=== PATIENT | female | born 1960 ===

== ENCOUNTER 2017-12-21 10:10 | Emergency (ER) | payer OTHER ==
[2017-12-21 10:31] VITALS: RESP 16
--- NOTE | 2017-12-21 12:06 | ED PDOC ---
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 Patient reports it resolved on its own and had a similar episode a month ago which also resolved on its own. Denies fever, cough , and chills. No history of cardiac or pulmonary disease, no family history of cardiac disease. no recent immobility/history of blood clots. pt feels fine now. PCP: none provided Past Medical History Reviewed: Historical Data, Nursing Documentation, Vital Signs Vital Signs: Last Vital Signs Temp 98.1 F 12/21/17 14:13 Pulse 68 12/23/17 11:21 Resp 16 12/21/17 14:13 BP 141/77 12/21/17 14:13 Pulse Ox 97 12/23/17 11:21 - Medical History PMH: No Chronic Diseases - Surgical History Surgical History: No Surg Hx - Family History Family History: States: Unknown Family Hx - Social History Current smoker - smoking cessation education provided: No Alcohol: None Drugs: Denies - Allergies Allergies/Adverse Reactions: Allergies Allergy/AdvReac Type Severity Reaction Status Date / Time No Known Allergies Allergy Verified 12/21/17 10:35 Curb-65 Severity Score - CURB-65 Severity Score Confusion: No Bun >19mg/dl (>7mmol/L): No Respiratory Rate greater than/equal to 30: No Systolic BP <90 or Diastolic BP less than/equal 60mmHg: No Age >64: No Curb-65 Score: 0 Percentage 30-day mortality: 0.6% Wells Criteria for PE - Wells Criteria for Pulmonary Embolism Clinical Signs and Symptoms of DVT: No P.E is #1 Diagnosis, or Equally Likely: No Heart Rate >100: No Immobilization at least 3 days;Surgery previous 4 weeks: No Previous, objectively diagnosed PE or DVT: No Hemoptysis: No Malignancy w/treatment within 6 months, or palliative: No Total Score: 0 Review of Systems ROS Statement: Except As Marked, All Systems Reviewed And Found Negative Constitutional: Negative for: Fever, Chills Respiratory: Positive for: Shortness of Breath (resolved). Negative for: Cough Physical Exam - Reviewed Nursing Documentation Reviewed: Yes Vital Signs Reviewed: Yes - Physical Exam Appears: Positive for: Non-toxic, No Acute Distress (in no respiratory distress. ambulating around ED. alert and awake. airway intact.) Head Exam: Positive for: ATRAUMATIC, NORMAL INSPECTION, NORMOCEPHALIC Skin: Positive for: Normal Color, Warm, Dry Eye Exam: Positive for: Normal appearance ENT: Positive for: Normal ENT Inspection Neck: Positive for: Normal, Painless ROM Cardiovascular/Chest: Positive for: Regular Rate, Rhythm. Negative for: Murmur Respiratory: Positive for: Normal Breath Sounds. Negative for: Wheezing, Respiratory Distress Gastrointestinal/Abdominal: Positive for: Normal Exam, Soft. Negative for: Tenderness Back: Positive for: Normal Inspection. Negative for: L CVA Tenderness, R CVA Tenderness Extremity: Positive for: Normal ROM, Other (neg glenn sign. no leg swelling) Neurologic/Psych: Positive for: Alert, Oriented. Negative for: Motor/Sensory Deficits - Laboratory Results Result Diagrams: 12/21/17 11:55 12/21/17 11:55 - ECG ECG Rhythm: Positive for: Sinus Rhythm (normal, 78), Right Bundle Branch Block ( incomplete), Nonspecific Changes (no ST elev.) Rate: 68 O2 Sat by Pulse Oximetry: 97 (RA) Pulse Ox Interpretation: Normal Medical Decision Making Medical Decision Making: Initial Impression: Shortness of breath rule out cardiac versus pulmonary etiology. suych as pneumonia. abnormal ekg or troponin. Initial Plan: ECG CMP Troponin CBC Chest X-ray 12:13 Chest X-ray FINDINGS: LINES AND TUBES: None. LUNG AND PLEURA: The lungs are well inflated and clear. No pleural effusion or pneumothorax. HEART AND MEDIASTINUM: The heart is not enlarged. The hilar and mediastinal contours are within normal limits. SKELETAL STRUCTURES: The bony structures are within normal limits for the patient's age. VISUALIZED UPPER ABDOMEN: Normal. OTHER FINDINGS: None. IMPRESSION: No active pulmonary disease. 14:00 Labs reviewed and are normal. and patient is feeling better. EKG is normal sinus. No risk factors or sympotms of PE, cardiac or pulm. disease. pts vitals normal. Patient is stable for discharge and is advised to follow up with the clinic this week. explained all to family at bedside. Scribe Attestation: Documented by Shahram Hatfield acting as a scribe for Nicole Danielson MD. Provider Scribe Attestation: All medical record entries made by the Scribe were at my direction and personally dictated by me. I have reviewed the chart and agree that the record accurately reflects my personal performance of the history, physical exam, medical decision making, and the department course for this patient. I have also personally directed, reviewed, and agree with the discharge instructions and disposition. Disposition - Clinical Impression Clinical Impression: Shortness of breath - Patient ED Disposition Is Patient to be Admitted: No Counseled Patient/Family Regarding: Studies Performed, Diagnosis, Need For Followup - Disposition Referrals: [facility] [Outside] Former[facility] [Outside] Disposition: Routine/Home Disposition Time: 13:00 Condition: IMPROVED Additional Instructions: follow up in clinic in 1-2 days return to the ED with any worsening or concerning symptoms Instructions: Shortness of Breath (Dyspnea) (DC) Forms: [employer] (Albanian), Social[employer] (Welsh) Print Language: VIETNAMESE
[2017-12-21 12:17] LABS: BASO % 0.7 % (0.0-2.0); EOS # 0.1 K/uL (0.0-0.7); EOS % 2.4 % (0.0-4.0); HEMOGLOBIN 13.7 g/dL (12.0-16.0); LYMPH # 1.3 K/uL (1.0-4.3); MEAN CELL VOLUME 90.9 fl (81.0-99.0); MEAN CORPUSCULAR HGB CONC 34.1 g/dL (33.0-37.0); MEAN PLATELET VOLUME 8.7 fl (7.2-11.7); MONO # 0.3 K/uL (0.0-0.8); MONO % 7.1 % (0.0-10.0); NEUT # 2.7 K/uL (1.8-7.0); NEUT % 59.8 % (50.0-75.0); NRBC % 0.1 % (0.0-0.0); RBC 4.42 Mil/uL (3.80-5.20); RED CELL DISTRIBUTION WIDTH 13.7 % (11.5-14.5); WHITE BLOOD COUNT 4.5 K/uL (4.8-10.8)
[2017-12-21 12:26] LABS: ALB/GLOB RATIO 1.2 (1.0-2.1); ALBUMIN 4.2 g/dL (3.5-5.0); ALT/SGPT 66 U/L (9-52); AST/SGOT 42 U/L (14-36); BLOOD UREA NITROGEN 12 mg/dl (7-17); CALCIUM 9.3 mg/dL (8.4-10.2); GFR AFRICAN-AMERICAN > 60; GFR NON-AFRICAN AMERICAN > 60
[2017-12-21 14:16] VITALS: BP 141/77; TEMP 98.1
--- NOTE | 2017-12-22 17:27 | CARD ---
APPROVED REPORT EKG Measurement Heart [id number] <Conclusion> Normal sinus rhythm Incomplete right bundle branch block Borderline ECG
[2017-12-23 11:20] VITALS: PULSE 68; O2SAT 97
== END 2017-12-21 14:16 | disposition home or self-care (01) ==
LOC: H.ER 10:10
DX: R06.02 Shortness of breath (principal); J44.0 Chronic obstructive pulmonary disease with (acute) lower respiratory infection

== ENCOUNTER 2018-12-20 10:53 | Emergency (ER) | payer SELFPAY ==
[2018-12-20 11:02] VITALS: BMI 28.3
[2018-12-20 11:04] VITALS: RESP 16
--- NOTE | 2018-12-20 14:57 | CT ---
Date of service: 12/20/2018 PROCEDURE: CT OF THE TEMPORAL BONES WITHOUT CONTRAST HISTORY: left ear pain, dizziness COMPARISON: None available. TECHNIQUE: High resolution axial images of the temporal bones were obtained. Coronal and sagittal reformats were generated. Radiation dose: Total exam DLP = 539.39 mGy-cm. This CT exam was performed using one or more of the following dose reduction techniques: Automated exposure control, adjustment of the mA and/or kV according to patient size, and/or use of iterative reconstruction technique. FINDINGS: RIGHT TEMPORAL BONE: RIGHT MIDDLE EAR: Normal. RIGHT INNER EAR: Cochlea: Normal. Semicircular canals: Normal. RIGHT MASTOID AIR CELLS: Normal. RIGHT INTERNAL AUDITORY CANAL: Normal. RIGHT EXTERNAL AUDITORY CANAL: Normal. RIGHT VESTIBULAR AND COCHLEAR AQUEDUCT: Normal. OTHER FINDINGS: None. LEFT TEMPORAL BONE: LEFT MIDDLE EAR: Normal. LEFT INNER EAR: Cochlea: Normal. Semicircular canals: Normal. LEFT MASTOID AIR CELLS: Normal. LEFT INTERNAL AUDITORY CANAL: Normal. LEFT EXTERNAL AUDITORY CANAL: Normal. LEFT VESTIBULAR AND COCHLEAR AQUEDUCTS: Normal. OTHER FINDINGS: There is mild scattered mucosal thickening in the right ethmoid air cells and a retention cyst/polyp in the right mid ethmoid air cell. The remaining paranasal sinuses are clear. IMPRESSION: No CT evidence for acute mastoiditis or otitis media. Mild chronic right ethmoid sinusitis and a retention cyst/polyp in the right mid ethmoid air cell.
--- NOTE | 2018-12-20 15:10 | ED PDOC ---
HPI: CCC, URI, Sore Throat Time Seen by Provider: 12/20/18 12:29 Chief Complaint (Nursing): ENT Problem Chief Complaint (Provider): ENT Problem History Per: Patient History/Exam Limitations: no limitations Onset/Duration Of Symptoms: Persistent (x3 weeks) Current Symptoms Are (Timing): Better Additional Complaint(s): 58 year old female presents to the emergency department with a complaint of left ear pain that started radiating to her right ear associated with intermittent dizziness and congestion for the past 3 weeks. She reports pain is worse in her left ear when she chews food or opens mouth. Patient took Advil with minimal alleviation but had not taken any today. At present, she reports "not feeling too bad". Otherwise, she denies any hearing loss, ear drainage, fever, chills, bodyaches, nausea, vomiting, cough, sore throat, headache, visual changes, facial swelling or pain. Past Medical History Reviewed: Historical Data, Nursing Documentation, Vital Signs Vital Signs: Last Vital Signs Temp 98.5 F 12/20/18 11:02 Pulse 73 12/20/18 11:02 Resp 16 12/20/18 11:02 BP 122/81 12/20/18 11:02 Pulse Ox 97 12/20/18 11:02 Primary Care Provider: FAMILY PROVIDER,NO - Medical History PMH: No Chronic Diseases - Family History Family History: States: Unknown Family Hx - Home Medications Home Medications: Ambulatory Orders Medication Instructions Recorded Ibuprofen [Motrin] 600 mg PO Q8H PRN #30 tab 12/20/18 - Allergies Allergies/Adverse Reactions: Allergies Allergy/AdvReac Type Severity Reaction Status Date / Time No Known Allergies Allergy Verified 12/20/18 12:59 Review of Systems ROS Statement: Except As Marked, All Systems Reviewed And Found Negative Constitutional: Negative for: Fever, Chills, Other (bodyaches) Eyes: Negative for: Vision Change ENT: Positive for: Ear Pain (left > right), Nose Congestion. Negative for: Ear Discharge, Nose Discharge, Throat Pain, Other (hearing loss or facial swelling/pain) Respiratory: Negative for: Cough Gastrointestinal: Negative for: Nausea, Vomiting Neurological: Positive for: Dizziness. Negative for: Headache Physical Exam - Reviewed Nursing Documentation Reviewed: Yes Vital Signs Reviewed: Yes - Physical Exam Appears: Positive for: Non-toxic, No Acute Distress Head Exam: Positive for: ATRAUMATIC, NORMAL INSPECTION, NORMOCEPHALIC Skin: Positive for: Normal Color. Negative for: Rash Eye Exam: Positive for: Normal appearance, EOMI, PERRL. Negative for: Conjunctival injection ENT: Positive for: TM Is/Are (clear bilaterally with no signs of effusion, opacity, erythema, edema, or tragal tenderness), Nasal Congestion (mild), Other. Negative for: Sinus Pain/Drainage, Pharyngeal Erythema, Tonsillar Exudate, Tonsillar Swelling Neck: Positive for: Normal, Painless ROM, Supple Lymphatic: Negative for: Adenopathy Neurological/Psych: Positive for: Awake, Alert, Normal Tone, Oriented, pastry artist II- XII (grossly intact with symmetry). Negative for: Motor/Sensory Deficits, Other (trismus) - ECG O2 Sat by Pulse Oximetry: 97 (RA) Pulse Ox Interpretation: Normal Medical Decision Making Medical Decision Making: Time: 1329 Initial Plan: CT facial bone to rule out mastoiditis or sinusitis Time: 1454 --CT facial bones FINDINGS: RIGHT TEMPORAL BONE: RIGHT MIDDLE EAR: Normal. RIGHT INNER EAR: Cochlea: Normal. Semicircular canals: Normal. RIGHT MASTOID AIR CELLS: Normal RIGHT INTERNAL AUDITORY CANAL: Normal. RIGHT EXTERNAL AUDITORY CANAL: Normal. RIGHT VESTIBULAR AND COCHLEAR AQUEDUCT: Normal. OTHER FINDINGS: None. LEFT TEMPORAL BONE: LEFT MIDDLE EAR: Normal. LEFT INNER EAR: Cochlea: Normal. Semicircular canals: Normal. LEFT MASTOID AIR CELLS: Normal. LEFT INTERNAL AUDITORY CANAL: Normal. LEFT EXTERNAL AUDITORY CANAL: Normal. LEFT VESTIBULAR AND COCHLEAR AQUEDUCTS: Normal. OTHER FINDINGS: There is mild scattered mucosal thickening in the right ethmoid air cells and a retention cyst/polyp in the right mid ethmoid air cell. The remaining paranasal sinuses are clear. IMPRESSION: No CT evidence for acute mastoiditis or otitis media. Mild chronic right ethmoid sinusitis and a retention cyst/polyp in the right mid ethmoid air cell. Time: 1500 --Upon provider reevaluation, patient is medically stable and requires no further treatment in the ED at this time. Patient will be discharged home with Rx for Motrin and given referral for ENT evaluation and follow up with [facility]. Counseling was provided and all questions were answered regarding diagnosis. There is agreement to discharge plan. Return to ED or follow up with PCP if symptoms persist or worsen. Clinical Impression: ear pain Scribe Attestation: Documented by Maylin Mendoza, acting as a scribe for Noris Dupree APN. Provider Scribe Attestation: All medical record entries made by the Scribe were at my direction and personally dictated by me. I have reviewed the chart and agree that the record accurately reflects my personal performance of the history, physical exam, medical decision making, and the department course for this patient. I have also personally directed, reviewed, and agree with the discharge instructions and disposition. Disposition - Clinical Impression Clinical Impression: Ear pain - Patient ED Disposition Is Patient to be Admitted: No Counseled Patient/Family Regarding: Diagnosis, Need For Followup, Rx Given - Disposition Referrals: Sigifredo Malcolm MD [Staff Provider] - [facility] [Outside] Disposition: Routine/Home Disposition Time: 15:00 Condition: GOOD Prescriptions: Ibuprofen [Motrin] 600 mg PO Q8H PRN #30 tab PRN Reason: Pain, Moderate (4-7) Instructions: General (DC) Forms: [employer] (Japanese) - POA Present On Arrival: None
[2018-12-20 15:34] VITALS: BP 128/74; PULSE 77; TEMP 98.8
[2018-12-20 15:36] VITALS: O2SAT 97
== END 2018-12-20 15:30 | disposition home or self-care (01) ==
LOC: H.ER 10:53
DX: H92.09 Otalgia, unspecified ear (principal); J32.2 Chronic ethmoidal sinusitis